=== PATIENT | female | born 1965 | race Caucasian/White ===

== ENCOUNTER 2019-07-02 12:51 | Day surgery (SDC) | payer OTHER ==
[2019-07-02] MEDS ORDERED: FENTAnyl 50 MCG/ML VIAL (15:21)
[2019-07-02] MEDS ORDERED: PROPOFOL 20 ML ×2 (15:21→15:22)
[2019-07-02] MEDS ORDERED: MIDAZOLAM 1 MG/ML 2 ML INJ (15:22)
[2019-07-02] MEDS ORDERED: LIDOCAINE 1% (MDV) 20 ML INJ (15:22)
== END 2019-07-02 16:33 | disposition home or self-care (01) ==
LOC: GIL 12:51
DX: Z12.11 Encounter for screening for malignant neoplasm of colon (principal); K64.4 Residual hemorrhoidal skin tags; K64.8 Other hemorrhoids
CPT/HCPCS: 45378